=== PATIENT | female | born 2000 | race Caucasian/White ===

== ENCOUNTER 2019-11-19 01:54 | Day surgery (SDC) | payer BC, SELFPAY ==
[2019-11-11 13:28] VITALS: BMI 21.5
[2019-11-19 07:35] VITALS: BP 110/50; PULSE 75; RESP 16; TEMP 36.8; O2SAT 100; BMI 21.4
--- NOTE | 2019-11-19 07:55 | P.PNAN_ITS ---
Anes - Initial Pre Proc Eval Procedure: Operation Date: 11/19/19 08:30 Proposed Procedures p Esophagogastroduodenoscopy & Colonoscopy - Ricardo Marrufo MD Date/Time: 11/19/19 07:55 Surgeon: Ricardo Marrufo MD Pre Op Diagnosis: Rectal Bleeding Patient Data Age: 19 Gender: F Height: 5 ft 4 in Weight: 57 kg Allergies Allergy/AdvReac Type Severity Reaction Status Date / Time amoxicillin Allergy Mild Hives Verified 11/19/19 07:40 Penicillins Allergy Mild Hives Verified 11/19/19 07:40 Home Medications Medication Instructions Recorded Confirmed Type lactobacillus combination no.8 3,000 mmu cells PO DAILY 11/11/19 11/11/19 History [Adult Probiotic] aurjsnhbmuvc-qym-puzu-FA-vit K 1 tablet PO DAILY 11/11/19 11/11/19 History [Adults Multivitamin] psyllium husk [Daily Fiber] 0.25 g PO DAILY 11/11/19 11/11/19 History 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] 30 mg PO DAILY 11/11/19 11/11/19 History Patient hx anesthesia problems: none Family hx anesthesia problems: none PMFSH Past Medical History Medical History Hypothyroid Anes - Eval Final PreProcedure Day of Procedure 11/19/19 07:55 Patient weight: normal Heart: regular rate and rhythm Lungs: clear to auscultation Airway: Mallampati scale class II Neurological: alert and oriented Last oral intake: >/= 8 hours ASA classification: II Emergent: no Anesthetic plan: proceed Anesthesia type and monitoring: general GIVS and standard monitoring Informed Consent: The patient's anesthetic plan and its attendant risks and benefits were discussed with the patient/family/POA. Questions were solicited and answers provided to the satisfaction of the patient/family/POA.
[2019-11-19] MEDS: LACTATED RINGERS 1,000 ML 150 ML IV CONT (08:06)
--- NOTE | 2019-11-19 08:23 | P.CONGI_ITS ---
Assessment and Plan Additional Plan This is a 19 year old female seen at the request of FACILITIES PAINTER, Giuliana Morgan. Patient reports her symptoms started 2 years ago. She describes substernal burning, throat burning. This has subsequently improved. She currently takes no medications for this. Over the last 1 year has had abdominal pain. She notices pain in the left side of her abdomen and a separate pain in the right to mid abdomen. She feels certain foods seem to aggravate the pain she notes that being is cause the roof of her mouth to peel. She notices some increased symptoms with fatty foods. She notices constipation alternating with loose stools. She recently has noticed blood in mucus in her stools at least 1 time a month. She has begun to modifier diet rather significantly. Currently taking per vitamins and probiotics. She takes MiraLax daily as well. In the past was told that she had H pylori by a stool test in May of 2019. Current medications include thyroid replacement vitamins and probiotics. She has allergies to penicillin. Family history is noncontributory . Physical exam reveals her to be alert. Vital signs stable. She is somewhat anxious in the office. HEENT exam unremarkable she is anicteric. Lungs are clear to auscultation and percussion. Heart is without murmur or extra sounds. Abdominal exam bowel sounds are present soft nontender with no hepatosplenomegaly. No masses are appreciated. Digital external rectal exam normal. Impression 1. Rectal bleeding. 2. Abdominal pain. 3. Anxiety. Symptom complex appears most consistent with irritable bowel syndrome. Rectal bleeding would be separate from this however. Plan is for fiber supplements to hopefully help correct her bowel habits. GI endoscopy will be planned to evaluate her symptoms more thoroughly. Both colonoscopy an EGD will be planned. Further recommendations will be given after endoscopy. 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
[2019-11-19 08:49] VITALS: BP 93/61; PULSE 54; RESP 20; O2SAT 100
[2019-11-19 08:59] VITALS: BP 92/48; PULSE 56; RESP 20; O2SAT 100
[2019-11-19 09:09] VITALS: BP 104/66; PULSE 52; RESP 20; O2SAT 100
== END 2019-11-19 09:18 | disposition home or self-care (01) ==
PROVIDERS: Visit Provider Internal Medicine Gastroenterology
PROC: 0DJ08ZZ Inspection of Upper Intestinal Tract, Via Natural or Artificial Opening Endoscopic (ICD-10-PCS; CPT 43235; principal; 2019-11-19 08:30)
DX: K62.5 Hemorrhage of anus and rectum (principal); R19.4 Change in bowel habit; K64.8 Other hemorrhoids; E03.9 Hypothyroidism, unspecified
CPT/HCPCS: 45378; 43239; 87081; J2704; J7120